=== PATIENT | male | born 1945 | race Caucasian/White ===

== ENCOUNTER → 2016-06-20 | Outpatient (CLI) | payer OTHER, MEDICARE ==
[2016-06-20 09:42] LABS: BASOPHILS # (AUTO) 0.08 10*3/UL; BASOPHILS % (AUTO) 1.2 % (0-1); EOSINOPHILS % (AUTO) 6.9 % (0-8); HEMATOCRIT 36.2 % (42.0-52.0); HEMOGLOBIN 11.7 g/dL (14.0-18.0); IMM GRAN % (AUTO) 0.5 % (0-5); IMM GRAN# (AUTO) 0.03 10*3/UL; LYMPHOCYTES # (AUTO) 1.07 10*3/uL; LYMPHOCYTES % (AUTO) 16.1 % (10-50); MEAN CORPUSCULAR HEMOGLOBIN 32.2 PG (27-31); MEAN CORPUSCULAR HGB CONC 32.3 g/dL (33-37); MEAN PLATELET VOLUME 9.5 FL (7.4-12.2); MONOCYTES # (AUTO) 0.72 10*3/UL (0.3-0.8); MONOCYTES % (AUTO) 10.8 % (5-15); NEUTROPHILS # (AUTO) 4.28 10*3/UL; NEUTROPHILS % (AUTO) 64.5 % (50-80); RED BLOOD COUNT 3.63 10^6/uL (4.70-6.10); WHITE BLOOD COUNT 6.64 10^3/uL (4.8-10.8)
[2016-06-20 09:43] LABS: PLATELET MORPHOLOGY COMMENT NORMAL MORPHOLOGY (NORM)
[2016-06-20 09:45] LABS: RETIC COUNT 0.051 10(6)/uL (0.0380-0.1130); RETICULOCYTE PERCENT 1.4 % (0.77-2.36)
[2016-06-20 10:32] LABS: BILIRUBIN,TOTAL 0.6 mg/dL (0.3-1.2); BUN/CREATININE RATIO 12.94 (6-20); CALCIUM 9.2 mg/dL (8.7-10.7); CREATININE 1.7 mg/dL (0.70-1.50); POTASSIUM 4.1 meq/L (3.8-5.2); TOTAL PROTEIN 7.5 g/dL (6.1-8.0)
[2016-06-20 11:42] LABS: IRON 121 UG/DL (49-181)
[2016-06-20 11:43] LABS: LDL CHOLESTEROL,CALCULATED 81.8 mg/dL
[2016-06-20 11:53] LABS: PERCENT IRON SATURATION 7 % (14-50)
[2016-06-20 17:32] LABS: FREE T4 (FREE THYROXINE) 1.27 ng/dL (0.93-1.71)
== END ==
LOC: LAB 07:39
PROVIDERS: ATTEND Internal Medicine
DX: E03.9 Hypothyroidism, unspecified (principal); E78.5 Hyperlipidemia, unspecified; I10 Essential (primary) hypertension; D53.9 Nutritional anemia, unspecified; J44.9 Chronic obstructive pulmonary disease, unspecified; R79.89 Other specified abnormal findings of blood chemistry; Z12.5 Encounter for screening for malignant neoplasm of prostate
CPT/HCPCS: 36415; 80053; 80061; 82550; 82607; 82728; 83540; 83550; 83921; 84439; 84443; 85025; 85045; G0103

== ENCOUNTER → 2016-06-23 | Outpatient (CLI) | payer OTHER, MEDICARE ==
[2016-06-23 11:29] LABS: BUN/CREATININE RATIO 13.33 (6-20); CALCIUM 9.5 mg/dL (8.7-10.7); CREATININE 1.5 mg/dL (0.70-1.50); POTASSIUM 4.6 meq/L (3.8-5.2)
--- NOTE | 2016-06-23 22:23 | DI ---
CT ABDOMEN SCAN WITH IV CONTRAST, 06/23/2016 3:58 PM : Clinical History: Abdominal aortic aneurysm. Previous Exam: None at this facility. Comparison is made with a CT aortogram with runoff from 01/16/20. Comment: The patient began coughing multiple times precisely during the acquisition through the abdom inal aorta. Scans of the abdomen and pelvis are somewhat suboptimal because of motion artifacts, but the aorta is well visualized without artifacts. Scans are performed from the lower lung bases through the liver and kidneys with IV contrast. 60 ml o f Isovue 300 was injected IV. A 50 mL saline bolus was injected following the IV contrast. Contrast v olume was limited because of the patient's renal status. The lung bases are clear. The liver is grossly normal. The gallbladder is contracted and may contain gallstones although there are motion artifacts. There is no gross abnormality of the spleen, pancreas , and adrenal glands. Grossly, the kidneys are normal in size, shape, position and contour. There is no hydronephrosis or hydroureter. No obvious renal or ureteral calculi are present. There are no abno rmal retrocrural or periaortic nodes. No ascites is present. The upper abdominal aorta down to the le pepe of the mid body of L3 has a normal caliber. Calcified and noncalcified plaques are present. There are 2 renal arteries on each side. The patient has an anatomic variant where the left lower pole pat al vein actually traverses posterior to the aorta instead of anteriorly between the aorta and SMA. Th e upper pole renal vein is in the classic anatomic position. There is a fusiform distal abdominal aor tic aneurysm that begins at the level of the L3-4 disc space and terminates at the bifurcation. The l ength of the aneurysm is approximately 60 mm in the maximum AP and transverse diameters are 49 x 43 m m. The previous study showed measurements of 60 mm in length by 43 x 40 mm in AP and transverse diame ter. This indicates that the aneurysm has increased in diameter since the previous study from 2014. There is minimal calcified plaque surrounding the aneurysm and there is a small amount of mural thrombus surrounding the intima. The right common iliac artery has a diameter of 22 mm. The ex tradural iliac arteries and the common femoral arteries show flow but assessment for any significant stenoses is not possible because of motion artifacts. READIN. The study was performed during the early arterial phase in the exact fashion of a CT angiogram of the aorta although the contrast bolus was limited because of the patient's renal status. Also, the p atient was coughing during the acquisition of this study. Therefore, there are motion artifacts prese nt but the evaluation of the abdominal aorta and iliac arteries is successful. 2. The fusiform distal abdominal aortic aneurysm has not increased in length but has increased in AP and transverse diameter with current measurements of 49 x 43 mm compared to the previous measurement s of 43 x 40 mm in 2015. The right common iliac artery measures 22 mm. 3. Flow through the external iliac arteries and the common femoral arteries is documented although a ssessment for stenoses is not possible. 4. No gross abnormality of the abdominal contents is noted. CT PELVIS SCAN WITH IV CONTRAST, 06/23/2016 3:58 PM: Clinical History: See above. Previous Exam: None at this facility. Scans are performed from just superior to the umbilicus to the symphysis pubis with IV contrast. This is the same bolus of contrast used for the CT scans of the abdomen. Scans through the lower abdomen and pelvis show no obvious masses or abnormal fluid collections. Ther e is no bulky adenopathy. The appendix cannot be evaluated. The small bowel, terminal ileum, and ileo cecal valve and the colon also cannot be evaluated because of motion artifacts. There is a small umbi lical hernia through which only mesenteric fat has herniated. READING: Normal CT scan of the pelvis. There is a small umbilical hernia.
== END ==
LOC: CT 10:56
PROVIDERS: ATTEND Internal Medicine
DX: I71.4 Abdominal aortic aneurysm, without rupture (principal); R79.89 Other specified abnormal findings of blood chemistry
CPT/HCPCS: 36415; 74177; 80048

== ENCOUNTER → 2016-09-02 | Outpatient (CLI) | payer OTHER, MEDICARE | LOC: LAB 11:53 | PROVIDERS: ATTEND Surgery | DX: I71.4 Abdominal aortic aneurysm, without rupture (principal) | CPT/HCPCS: 36415; 82565; 84520 ==

== ENCOUNTER → 2016-12-15 | Outpatient (CLI) | payer OTHER, MEDICARE ==
[2016-12-15 09:20] LABS: BASOPHILS # (AUTO) 0.09 10*3/UL; BASOPHILS % (AUTO) 1.7 % (0-1); EOSINOPHILS # (AUTO) 0.41 10*3/UL; EOSINOPHILS % (AUTO) 7.6 % (0-8); HEMATOCRIT 32.9 % (42.0-52.0); HEMOGLOBIN 10.4 g/dL (14.0-18.0); LYMPHOCYTES # (AUTO) 1.14 10*3/uL; MEAN CORPUSCULAR HEMOGLOBIN 31.7 PG (27-31); MEAN CORPUSCULAR HGB CONC 31.6 g/dL (33-37); MEAN CORPUSCULAR VOLUME 100.3 FL (80-90); MEAN PLATELET VOLUME 9.5 FL (7.4-12.2); MONOCYTES # (AUTO) 0.54 10*3/UL (0.3-0.8); NEUTROPHILS % (AUTO) 59.2 % (50-80); RED BLOOD COUNT 3.28 10^6/uL (4.70-6.10)
[2016-12-15 09:22] LABS: BLOOD UREA NITROGEN 31 mg/dL (7-22); BUN/CREATININE RATIO 16.31 (6-20); CALCIUM 9.8 mg/dL (8.7-10.7)
[2016-12-15 09:23] LABS: CHOL/HDL RATIO 3.75 RATIO (0-4.0); LDL CHOLESTEROL,CALCULATED 86.6 mg/dL
[2016-12-15 09:45] LABS: PLATELET MORPHOLOGY COMMENT NORMAL MORPHOLOGY (NORM); RBC MORPHOLOGY COMMENT NORMAL MORPHOLOGY (NORM); WBC MORPHOLOGY COMMENT NORMAL MORPHOLOGY (NORM)
[2016-12-15 10:19] LABS: FREE T4 (FREE THYROXINE) 0.72 ng/dL (0.93-1.71)
== END ==
LOC: LAB 07:26
PROVIDERS: ATTEND Internal Medicine
DX: E03.9 Hypothyroidism, unspecified (principal); J44.9 Chronic obstructive pulmonary disease, unspecified; J98.4 Other disorders of lung; D53.9 Nutritional anemia, unspecified; R79.89 Other specified abnormal findings of blood chemistry; I71.4 Abdominal aortic aneurysm, without rupture; I72.3 Aneurysm of iliac artery; Z72.0 Tobacco use
CPT/HCPCS: 36415; 80053; 80061; 82550; 82728; 84439; 84443; 85025; G0103